=== PATIENT | male | born 1985 | race Two or more races ===

== ENCOUNTER 2021-08-04 13:12 | Emergency (ER) | payer OTHER ==
[~2021-08-04] VITALS: Ht 185.4 cm; Wt 113.4 kg
--- NOTE | 2021-08-04 14:25 | NUR ---
TO ER BED 2,SL ESTABLISHED,BLOOD DRAWN FOR LABS,AWAITING MD WILLIAMSON
--- NOTE | 2021-08-04 14:45 | NUR ---
DR RIVAS AT BEDSIDE FOR EVAL.
[2021-08-04] MEDS ORDERED: MAG HYDROX/AL HYDROX/SIMETH 30 ML UDC ONE (14:50)
[2021-08-04] MEDS ORDERED: FAMOTIDINE/PF INJ 20 MG/2 ML VIAL IV ONE ×2 (14:50→15:00)
[2021-08-04] MEDS ORDERED: MAG HYDROX/AL HYDROX/SIMETH 30 ML UDC PO ONE (15:00)
[2021-08-04] MEDS ORDERED: IV NS 0.9% 1,000 ML BAG IV ONE (15:00)
[2021-08-04 15:25] LABS: BASOPHILS # (AUTO) 0.1 K/uL (0.0-0.2); BASOPHILS % (AUTO) 0.8 % (0.0-2.0); EOSINOPHILS % (AUTO) 0.6 % (0.0-6.0); HEMATOCRIT 49 % (39-51); HEMOGLOBIN 16.6 g/dL (13.5-17.5); LYMPHOCYTES # (AUTO) 2.4 K/uL (0.8-4.8); LYMPHOCYTES % (AUTO) 26.1 % (20.0-44.0); MEAN CORPUSCULAR HGB CONC 34 g/dl (31.0-36.0); MEAN CORPUSCULAR VOLUME 88 fL (80-96); MONOCYTES # (AUTO) 0.6 K/uL (0.1-1.30); MONOCYTES % (AUTO) 7.2 % (2.0-12.0); NEUTROPHILS # (AUTO) 5.9 K/uL (1.8-8.9); NEUTROPHILS % (AUTO) 65.3 % (43.0-81.0); PLATELET COUNT (AUTO) 371 K/uL (150-450); WHITE BLOOD COUNT (AUTO) 9.1 K/uL (4.3-11.0)
[2021-08-04 15:42] LABS: ALBUMIN 4.4 g/dL (3.4-5.0); BILIRUBIN,DIRECT 0.2 mg/dL (0.0-0.2); BILIRUBIN,TOTAL 0.8 mg/dL (0.2-1.0); TOTAL PROTEIN, SERUM 8.7 g/dL (6.4-8.2)
[2021-08-04] MEDS ORDERED: OMEP40CA21 PO (16:08)
--- NOTE | 2021-08-04 16:28 | NUR ---
Patient discharged to home in stable condition. Written and verbal after care instructions given. Patient verbalizes understanding of instruction.IV removed. Catheter intact and site benign. Pressure and 4x4 applied to site. No bleeding noted.
[2021-08-04 16:32] VITALS: BP 134/76
== END 2021-08-04 16:33 | disposition home or self-care (01) ==
LOC: ER 13:23
DX: K29.70 Gastritis, unspecified, without bleeding (principal); F17.200 Nicotine dependence, unspecified, uncomplicated; Z60.2 Problems related to living alone; Z79.899 Other long term (current) drug therapy
CPT/HCPCS: 36415; 80048; 80076; 83690; 85025; 96361; 96374; 99283; J3490; J7030

== ENCOUNTER 2024-01-31 10:53 | Emergency (ER) | payer OTHER ==
[~2024-01-31] VITALS: Ht 185.4 cm; Wt 108.9 kg
[~2024-01-31 10:53] MED LIST: OMEP40CA21 PO
[2024-01-31 10:58] VITALS: BP 137/67; TEMP 98.7; O2SAT 100
[2024-01-31] MEDS: CEPHALEXIN MONOHYDRATE 500 MG CAPSULE PO ONE (11:19)
[2024-01-31] MEDS: SULFAMETH/TRIMETH 800/160 MG 1 UDTAB TABLET PO ONE (11:19)
[2024-01-31] MEDS ORDERED: SULFAMETH/TRIMETH 800/160 MG 1 UDTAB TABLET ONE (11:19)
[2024-01-31] MEDS ORDERED: CEPHALEXIN MONOHYDRATE 500 MG CAPSULE PO ONE (11:19)
[2024-01-31] MEDS ORDERED: SULF1TAB48 PO (11:24)
[2024-01-31] MEDS ORDERED: CEPH500T PO (11:24)
== END 2024-01-31 11:29 | disposition home or self-care (01) ==
LOC: ER 10:53
DX: L03.111 Cellulitis of right axilla (principal); F17.200 Nicotine dependence, unspecified, uncomplicated; Z79.899 Other long term (current) drug therapy